=== PATIENT | male | born 1960 | race Caucasian/White ===

== ENCOUNTER 2017-07-08 02:04 | Inpatient (IN) | payer MEDICARE ==
[2017-07-08 02:40] LABS: BASOPHILS % (AUTO) 1 % (0-3); EOSINOPHILS % (AUTO) 0 % (0-9); HEMATOCRIT 44 % (39-53); MEAN CORPUSCULAR HGB CONC 34.2 gm/dl (32.0-36.0); MEAN CORPUSCULAR VOLUME 82 fL (80-100); MONOCYTES % (AUTO) 7.5 % (0-12); NEUTROPHILS % (AUTO) 62.3 % (37-80)
[2017-07-08] MEDS ORDERED: FUROSEMIDE 20mg SOL IV ONE (02:49)
[2017-07-08] MEDS ORDERED: FUROSEMIDE 20mg SOL ONE (02:52)
[2017-07-08 02:55] LABS: POTASSIUM 3.3 mMol/L (3.5-5.1)
[2017-07-08] MEDS ORDERED: ALBUTEROL/IPRATROPIUM 1 VIAL SOL INH ONE (02:56)
[2017-07-08] MEDS ORDERED: ALBUTEROL/IPRATROPIUM 1 VIAL SOL ONE (03:02)
[2017-07-08] MEDS ORDERED: OXYCODONE HYDROCHLORIDE 5 MG TAB PO PRN (03:40)
[2017-07-08] MEDS ORDERED: INDOMETHACIN 75 MG PO PRN (03:40)
[2017-07-08] MEDS ORDERED: COLCHICINE 0.6 MG PO PRN (03:40)
[2017-07-08] MEDS ORDERED: NITROGLYCERIN 0.4 MG TAB SL PRN (03:40)
[2017-07-08] MEDS ORDERED: LISINOPRIL 5 MG TAB PO PRN (03:40)
[2017-07-08] MEDS ORDERED: SOLUMEDROL 125 MG/2 ML 125 MG/2 ML PDS IV ONE (03:40)
[2017-07-08] MEDS ORDERED: PREDNISONE 20 MG TAB PO PRN (03:40)
[2017-07-08] MEDS ORDERED: NICOTINE 7 MG PATCH TD SCH (03:45)
[2017-07-08] MEDS ORDERED: LINACLOTIDE 145 MCG PO SCH (03:45)
[2017-07-08] MEDS ORDERED: ALBUTEROL NEB SOL 2.5MG/3ML 1 VIAL SOL NEB PRN (03:47)
[2017-07-08] MEDS ORDERED: INDOMETHACIN 25 MG PO PRN (04:13)
[2017-07-08] MEDS ORDERED: SODIUM CHLORIDE 0.9% FLUSH 10 ML SOL IV SCH (08:00)
[2017-07-08 08:18] VITALS: BP 125/76; TEMP 98.5
[2017-07-08] MEDS ORDERED: CARVEDILOL 12.5 MG TAB PO SCH (09:00)
[2017-07-08] MEDS ORDERED: PANTOPRAZOLE SODIUM 40 MG ECT PO SCH (09:00)
[2017-07-08] MEDS ORDERED: LAMOTRIGINE 25 MG TAB PO SCH (09:00)
[2017-07-08] MEDS ORDERED: SENNOSIDES A AND B 8.6 MG TAB PO SCH (09:00)
[2017-07-08] MEDS ORDERED: TAMSULOSIN HYDROCHLORIDE 0.4 MG CAP PO SCH (09:00)
[2017-07-08] MEDS ORDERED: SOLUMEDROL 125 MG/2 ML 125 MG/2 ML PDS IV SCH (09:00)
[2017-07-08] MEDS ORDERED: SPIRONOLACTONE 25 MG TAB PO SCH (09:00)
[2017-07-08] MEDS ORDERED: ASPIRIN EC 81 MG PO SCH (09:00)
[2017-07-08] MEDS ORDERED: METFORMIN HYDROCHLORIDE 500 MG TAB PO SCH (09:00)
[2017-07-08] MEDS ORDERED: ALBUTEROL/IPRATROPIUM 1 VIAL SOL INH SCH (09:00)
[2017-07-08] MEDS ORDERED: CLOPIDOGREL 75 MG TAB PO SCH (09:00)
[2017-07-08] MEDS ORDERED: DULOXETINE HCL 30 MG CAPSULE.DR PO SCH (09:00)
[2017-07-08] MEDS ORDERED: BUDESONIDE/FORMOTEROL 160/4.5 AER INH SCH (09:15)
[2017-07-08 10:01] VITALS: PULSE 66; RESP 24; O2SAT 95
[2017-07-08] MEDS ORDERED: ATORVASTATIN 10 MG TAB PO SCH (21:00)
[2017-07-09] MEDS ORDERED: LINACLOTIDE 145 MCG PO SCH (09:00)
== END 2017-07-08 11:20 | disposition home or self-care (01) | DRG 292 ==
LOC: ED 02:04 → ACUTE CARE 03:33
PROVIDERS: ADMIT Family Medicine; ATTEND Family Medicine
DX: I50.9 Heart failure, unspecified (principal); J44.1 Chronic obstructive pulmonary disease with (acute) exacerbation; E11.9 Type 2 diabetes mellitus without complications
CPT/HCPCS: 36415; 71010; 80048; 82962; 83880; 84484; 85025; 93005; 94150; 96374; 99222; 99285; J1940; J2930; J7603; J7620